=== PATIENT | male | born 1960 | race Caucasian/White ===

== ENCOUNTER 2016-11-13 09:45 | Emergency (ER) | payer MEDICARE, MEDICAID ==
[~2016-11-13] VITALS: Ht 185.4 cm; Wt 90.3 kg
[~2016-11-13 09:45] MED LIST: AMLO10TA2 PO; ASPI-999 PO; BUDE10.2 IH; ESCI20TA PO; FLUT16SP22 INH; FLUT1DIS27 IH; HYDR-3816 PO; LISI1TAB8 PO; MONT10TA24 PO
--- OUTSIDE RECORDS SUMMARY | 2016-11-13 09:49 | XMS REPORT | Continuity of Care Document ---
Author Author [facility] Organization [facility] Address Unknown Phone Unavailable Care Team Providers Care Warehousing Technician Name Role Phone [facility] PCP Insurance Providers Payer Name Policy Number Subscriber Name Relationship [employer] [id number] Elmer David 18 Self / Same As Patient [facility] [id number] Elmer David 18 Self / Same As Patient Advance Directives Directive Response Recorded Date/Time Advance Directives No 03/09/16 9:02am Health Care Power of Counter Manager No 03/09/16 9:02am Organ Donor No 03/09/16 9:02am Resuscitation Status Full Code 03/09/16 9:02am Problems Active Problems Medical Problem Onset Date Status Contusion of leg, left Unknown Acute Medications Current Home Medications Medication Dose Units Route Directions Days/Qty Instructions Start Date Amlodipine Besylate 10 Mg 10 Mg Oral Daily 07/28/15 Fluticasone Propionate 16 Gm 27.5 Mcg Inhalation Daily 07/28/15 Lisinopril/Hydrochlorothiazide 1 Each 1 Each Oral Daily 07/28/15 Montelukast Sodium 10 Mg 10 Mg Oral Bedtime 07/28/15 Fluticasone/Salmeterol 1 Each 1 Each Inhalation Twice A Day 02/19/16 Aspirin 81 Mg 81 Mg Oral Daily 02/19/16 Escitalopram Oxalate 20 Mg 20 Mg Oral Daily 03/09/16 Past Home Medications Medication Directions Ordered Status Budesonide/Formoterol Fumarate 10.2 Gm Hfa.aer.ad, 2 Puff Inhalation Twice A Day 10/20/15 Discontinued Social History Social History Problem Response Recorded Date/Time Alcohol Use Rarely Uses 03/09/2016 9:02am Recreational Drug Use No 03/09/2016 9:02am Recent Foreign Travel No 03/09/2016 9:02am Recent Infectious Disease Exposure No 03/09/2016 9:02am Hospitalization with Isolation Denies 03/09/2016 9:02am Smoking Status Former Smoker 03/09/2016 9:02am Do you dip or chew tobacco? No 02/19/2016 5:41pm Query Response Start Date Stop Date Smoking Status Former Smoker Hospital Discharge Instructions No hospital discharge instructions. Plan of Care Discharge Date 03/09/16 9:25am Prescriptions See Medication Section Functional Status No functional status results. Allergies, Adverse Reactions, Alerts Allergen Type Severity Reaction Status Last Updated Penicillins ([id number]) Allergy Unknown HIVES Active 03/09/16 Immunizations No immunization records. Vital Signs Acute Vital Signs Vital Response Date/Time Temperature (Fahrenheit) 98.8 degrees F (97.6 - 99.5) 02/19/2016 5:38pm Temperature (Calculated Celsius) 37.41438 degrees C (36.4 - 37.5) 02/19/2016 5:38pm Temperature Source Tympanic 02/19/2016 5:38pm Pulse Rate (adult) 77 bpm (60 - 90) 03/09/2016 9:02am Respiratory Rate 16 bpm (12 - 24) 02/19/2016 7:00pm O2 Sat by Pulse Oximetry 94 % (88 - 100) 03/09/2016 9:02am Blood Pressure 150/88 mm Hg 03/09/2016 9:02am Blood Pressure Mean 109 mm Hg 02/19/2016 5:38pm Pain Pain Intensity 7 02/19/2016 7:00pm Height (Feet) 6 feet 03/09/2016 9:02am Height (Inches) 1.00 inches 03/09/2016 9:02am Height (Calculated Centimeters) 185.317780 cm 03/09/2016 9:02am Weight (Pounds) 212 pounds 03/09/2016 9:02am Weight (Ounces) 7.0 oz 03/09/2016 9:02am Weight (Calculated Grams) 48487.030 gm 03/09/2016 9:02am Weight (Calculated Kilograms) 96.876925 kilograms 03/09/2016 9:02am Calculated BMI 24.50 03/09/2016 9:02am Results No known relevant diagnostic tests, laboratory data and/or discharge summary. Procedures Procedure Status Date Provider(s) Tracing only of electrocardiogram Active 03/09/16 AKOSUA CAMARILLO CRNA Encounters Encounter Location Arrival/Admit Date Discharge/Depart Date Attending Provider Departed Clinic [facility] 03/09/16 8:52am 03/09/16 9: 25am GRECIA CARREON MD Departed Emergency Room [facility] 02/19/16 4:50pm 02/18 6:59pm RADHA HER MD
[2016-11-13] MEDS ORDERED: LIDOCAINE 1% INJ 20 ML (XYLOCAINE) VIAL ONE (10:19)
[2016-11-13] MEDS ORDERED: LIDOCAINE 1% INJ 20 ML (XYLOCAINE) VIAL INJ ONE (10:30)
--- NOTE | 2016-11-13 10:53 | ED Integumentary General ---
General Chief Complaint: Skin/Wound Problems Stated Complaint: INSECT BITE ON ABD Nursing Triage Note: Pt reports possible spider bite to R abdomen. Pt denies fevers/chills. Source: patient Exam Limitations: no limitations History of Present Illness Time seen by provider: 10:47 Initial Comments 56-year-old white male presents with an abscess to the anterior right side of his abdominal wall that is been progressive for the last several days. The patient said similar lesions from MRSA. Past medical history includes hypertension and asthma. Allergies and Home Medications Allergies Coded Allergies: Penicillins (Verified Allergy, Unknown, HIVES, 03/09/16) Home Medications Amlodipine Besylate 10 Mg Tablet 10 MG PO DAILY (Reported) Aspirin 81 Mg Tab.chew 81 MG PO DAILY (Reported) Escitalopram Oxalate 20 Mg Tablet 20 MG PO DAILY (Reported) Fluticasone Propionate 16 Gm Whitmer.susp 27.5 MCG INH DAILY (Reported) Fluticasone/Salmeterol 1 Each Blst.w.dev 1 EACH IH BID (Reported) Hydrocodone/Acetaminophen 1 Each Tablet #40 1 EACH PO Q4H Prescribed by: RASHEEDA BLEDSOE on 03/16/16 1238 Lisinopril/Hydrochlorothiazide 1 Each Tablet 1 EACH PO DAILY (Reported) Montelukast Sodium 10 Mg Tablet 10 MG PO HS (Reported) Constitutional: No chills, No fever EENTM: No ear pain Respiratory: No cough Cardiovascular: No chest pain Gastrointestinal: No abdominal pain, No vomiting Genitourinary: no symptoms reported Musculoskeletal: No back pain Skin: other (abscess right abdominal wall) Psychiatric/Neurological: No Symptoms Reported Endocrine: No Symptoms Reported Past Yngnsyf-Yuhugg-Cncqis Hx Patient Social History Alcohol Use: Denies Use Recreational Drug Use: No Smoking Status: Former Smoker Type Used: Cigarettes Recent Foreign Travel: No Contact w/Someone Who Travel: No Recent Infectious Disease Expo: No Recent Hopitalizations: No Seasonal Allergies Seasonal Allergies: Yes Surgeries HX Surgeries: Yes (colonoscopy, bilat carpal tunnel, ulnar nerve, hernia) Surgeries: Orthopedic Respiratory Hx Respiratory Disorders: Yes Respiratory Disorders: Asthma Cardiovascular Hx Cardiac Disorders: Yes Cardiac Disorders: Hypertension Neurological Hx Neurological Disorders: No (seizures as a small child febrile?) Reproductive System Hx Reproductive Disorders: No Genitourinary Hx Genitourinary Disorders: No Gastrointestinal Hx Gastrointestinal Disorders: No Gastrointestinal Disorders: Abdominal Hernia Musculoskeletal Hx Musculoskeletal Disorders: No Endocrine Hx Endocrine Disorders: No HEENT HX ENT Disorders: No (dentures-upper) Cancer Hx Cancer: No Psychosocial Hx Psychiatric Problems: Yes Behavioral Health Disorders: Sleep Difficulties, Anxiety Integumentary HX Skin/Integumentary Disorder: No Blood Transfusions Hx Blood Disorders: No Reviewed Nursing Assessment Reviewed/Agree w Nursing PMH: Yes Family Medical History Significant Family History: No Pertinent Family Hx Physical Exam Vital Signs Vital Sign - Last 12Hours 11/13/16 10:02 Temp 97.9 Pulse 74 Resp 18 B/P 119/87 Pulse Ox 96 O2 Delivery Room Air Capillary Refill : Less Than 3 Seconds General Appearance: WD/WN no apparent distress HEENT: normal ENT inspection Neck: normal inspection Cardiovascular: regular rate, rhythm Respiratory: chest non-tender lungs clear Gastrointestinal: normal bowel sounds non tender soft Back: normal inspection Extremities: normal range of motion non-tender Neurologic/Psychiatric: no motor/sensory deficits alert Skin: other (abscess right lateral abdominal wall) Skin Problem Character: abscess Progress/Results/Core Measures Results/Orders My Orders Orders-RADHA HER MD Lidocaine 1% Injection (Xylocaine 1% Inj (11/13/16 10:19) Lidocaine 1% Injection (Xylocaine 1% Inj (11/13/16 10:30) Vital Signs/I&O Vital Sign - Last 12Hours 11/13/16 10:02 Temp 97.9 Pulse 74 Resp 18 B/P 119/87 Pulse Ox 96 O2 Delivery Room Air Blood Pressure Mean: 98 Progress Note : Time: 10:52 Progress Note Usual sterile conditions using 1 percent Xylocaine for local anesthesia the 3 cm in diameter abscess over the right lateral abdominal wall was incised with a number 15 blade. An infected sebaceous abscess was expressed. The remanence of the cyst were removed. Packing was placed. Dressing was applied. Departure Impression Impression: Primary Impression: Abscess Disposition: 01 HOME, SELF-CARE Condition: Improved Departure-Patient Inst. Referrals: [facility] (PCP/Family) Primary Care Physician Patient Instructions: Abscess Incision and Drainage (DC) Scripts Sulfamethoxazole/Trimethoprim (Bactrim Ds Tablet)1 Each Tablet1 Each PO BID #20 TAB Prov:RADHA HER MD 11/13/16 RADHA HER MD Nov 13, 2016 10:53
[2016-11-13] MEDS ORDERED: SULF1TAB35 PO (10:56)
[2016-11-13 11:02] VITALS: BP 119/87
== END 2016-11-13 11:02 | disposition home or self-care (01) ==
LOC: EDUNIT# 09:45 → ER 09:46
DX: L02.211 Cutaneous abscess of abdominal wall (principal); I10 Essential (primary) hypertension; Z79.82 Long term (current) use of aspirin; Z79.899 Other long term (current) drug therapy; Z87.891 Personal history of nicotine dependence
CPT/HCPCS: 10060

== ENCOUNTER 2019-01-30 18:09 | Emergency (ER) | payer MEDICARE, MEDICAID ==
[~2019-01-30] VITALS: Ht 185.4 cm; Wt 88.5 kg
[~2019-01-30 18:09] MED LIST changes: -AMLO10TA2 PO; +AMLO10TA7 PO; +HYDR-34 PO; -HYDR-3816 PO; +SULF1TAB35 PO
--- NOTE | 2019-01-30 19:12 | Diagnostic Imaging Report ---
EXAMINATION: Three views of left foot. INDICATION: Dropped heavy object on foot. FINDINGS: There is dorsal foot soft tissue swelling but there are no findings of an acute foot fracture. There is no joint dislocation. There are arthritic changes present within the great toe. The joint spaces otherwise appear unremarkable. There is a well-corticated ossific density adjacent to the medial malleolus, compatible with a remote avulsion. IMPRESSION: 1. Dorsal soft tissue swelling overlying the left foot without acute foot fracture. 2. osteoarthritic changes within the great toe. 3. Remote medial malleolus avulsion. Dictated by: Dictated on workstation # [id number]
--- NOTE | 2019-01-30 19:13 | Diagnostic Imaging Report ---
EXAMINATION: Three views of the left foot. INDICATION: Dropped object on foot. Foot and ankle swelling. FINDINGS: There is diffuse soft tissue swelling demonstrated about the ankle, greater laterally. There is no distal fibular fracture evident. There is remote avulsion off the medial malleolus. There is no widening of the ankle mortise. The talar dome is normal in morphology. The visualized portion of the hindfoot demonstrates no fracture. IMPRESSION: Ankle soft tissue swelling greatest along the lateral aspect of the ankle and foot. There is no acute fracture evident. There is a remote avulsion off of the medial malleolus. Alignment appears normal. Dictated by: Dictated on workstation # [id number]
[2019-01-30] MEDS ORDERED: HYDR-4226 PO (19:24)
--- NOTE | 2019-01-30 19:24 | ED Lower Extremity ---
General Chief Complaint: Lower Extremity Stated Complaint: L FOOT PAIN Nursing Triage Note: PT AMB TO TRIAGE WITH COMPLAINT OF LEFT FT INJURY. PT DROPPED FLOOR HELEN ON FOOT LAST NIGHT. Nursing Sepsis Screen: No Definite Risk Source: patient Exam Limitations: no limitations History of Present Illness Date Seen by Provider: Jan 30, 2019 Time Seen by Provider: 19:21 Initial Comments To ER with reports of left foot pain. He dropped a helen on this last night. He' s been able to put some weight on it but it is painful. Onset: just prior to arrival Severity: moderate Pain/Injury Location: left foot, left ankle Method of Injury: direct blow Modifying Factors: Worse With Movement Allergies and Home Medications Allergies Coded Allergies: Penicillins (Verified Allergy, Unknown, HIVES, 03/09/16) Home Medications Amlodipine Besylate 10 Mg Tablet, 10 MG PO DAILY, (Reported) Aspirin 81 Mg Tab.chew, 81 MG PO DAILY, (Reported) Escitalopram Oxalate 20 Mg Tablet, 20 MG PO DAILY, (Reported) Fluticasone Propionate 16 Gm Essie.susp, 27.5 MCG INH DAILY, (Reported) Fluticasone/Salmeterol 1 Each Blst.w.dev, 1 EACH IH BID, (Reported) Hydrocodone Bit/Acetaminophen 1 Each Tablet, 1 EACH PO Q4H Prescribed by: RASHEEDA BLEDSOE on 03/16/16 1238 Hydrocodone/Acetaminophen 1 Each Tablet, 1 EACH PO Q6H PRN for PAIN-MODERATE Prescribed by: DOUGLAS JOHNSON on 01/30/19 1924 Lisinopril/Hydrochlorothiazide 1 Each Tablet, 1 EACH PO DAILY, (Reported) Montelukast Sodium 10 Mg Tablet, 10 MG PO HS, (Reported) Sulfamethoxazole/Trimethoprim 1 Each Tablet, 1 EACH PO BID Prescribed by: RADHA HER MD on 11/13/16 1056 Patient Home Medication List Home Medication List Reviewed: Yes Review of Systems Constitutional: see HPI EENTM: see HPI Respiratory: no symptoms reported Cardiovascular: no symptoms reported Genitourinary: no symptoms reported Musculoskeletal: see HPI Skin: see HPI Past Knskeym-Zwadfh-Owtikd Hx Patient Social History Alcohol Use: Denies Use Recreational Drug Use: No Smoking Status: Former Smoker Type Used: Cigarettes Former Smoker, Quit: Mar 09, 2009 Recent Foreign Travel: No Contact w/Someone Who Travel: No Recent Infectious Disease Expo: No Recent Hopitalizations: No Immunizations Up To Date Tetanus Booster (TDap): More than 5yrs Seasonal Allergies Seasonal Allergies: Yes Past Medical History Surgeries: Yes (colonoscopy, bilat carpal tunnel, ulnar nerve, hernia) Orthopedic Respiratory: Yes Asthma Cardiac: Yes Hypertension Neurological: No (seizures as a small child febrile?) Reproductive Disorders: No Gastrointestinal: No Abdominal Hernia Musculoskeletal: No Endocrine: No Cancer: No Psychosocial: Yes Sleep Difficulties, Anxiety Integumentary: No Blood Disorders: No Family Medical History No Pertinent Family Hx Physical Exam Vital Signs Vital Signs - First Documented 01/30/19 18:13 Pulse 79 Resp 20 B/P (MAP) 147/90 (109) Pulse Ox 94 O2 Delivery Room Air Capillary Refill : Less Than 3 Seconds Height, Weight, BMI Height: 6'1.00" Weight: 195lbs. 7.0oz. 88.379861jp; 28.0 BMI Method:Stated General Appearance: WD/WN, no apparent distress HEENT: PERRL/EOMI, normal ENT inspection Respiratory: no respiratory distress, no accessory muscle use Hips: bilateral hip non-tender, bilateral hip normal inspection, bilateral hip normal range of motion Legs: bilateral leg non-tender, bilateral leg normal inspection, bilateral leg normal range of motion Knees: bilateral knee non-tender, bilateral knee normal inspection, bilateral knee normal range of motion Ankles: left ankle pain, left ankle soft tissue tenderness, left ankle swelling Feet: left foot pain, left foot soft tissue tenderness, left foot swelling, left foot other (there is also an abrasion to the dorsal aspect of the midfoot on the left. No sialitis.) Neurologic/Psychiatric: alert, normal mood/affect, oriented x 3 Skin: normal color, warm/dry Progress/Results/Core Measures Results/Orders My Orders Orders - DOUGLAS JOHNSON APRN Dipht,Pertuss(Acell),Tet Adult (Boostrix (01/30/19 19:30) Cephalexin Capsule (Keflex Capsule) (01/30/19 19:30) Hydrocodone/Apap 5/325 Tablet (Lortab 5 (01/30/19 19:30) Vital Signs/I&O 01/30/19 18:13 Pulse 79 Resp 20 B/P (MAP) 147/90 (109) Pulse Ox 94 O2 Delivery Room Air Blood Pressure Mean: 109 Departure Impression Primary Impression: Contusion of foot Qualified Codes: S90.32XA - Contusion of left foot, initial encounter Disposition: 01 HOME, SELF-CARE Condition: Stable Departure-Patient Inst. Decision time for Depature: 19:22 Referrals: [facility] (PCP) Primary Care Physician JOSE WILKINSON (Family) Primary Care Physician Patient Instructions: Contusion (DC) Add. Discharge Instructions: 1. Elevate the foot as much as possible for the next 2-3 days. Wear the Naveen wrap on the foot for the next 2-3 days. Use the crutches as needed when walking for the next few days until it does not hurt any longer to put weight on the foot. All discharge instructions reviewed with patient and/or family. Voiced understanding. Scripts Cephalexin (Keflex) 500 Mg Capsule 500 MG PO TID, #15 CAP Prov: DOUGLAS JOHNSON APRN 01/30/19 Hydrocodone/Acetaminophen ([place] 5-325 Tablet) 1 Each Tablet 1 EACH PO Q6H PRN for PAIN-MODERATE MDD 10, #14 TAB Prov: DOUGLAS JOHNSON APRN 01/30/19 DOUGLAS JOHNSON APRN Jan 30, 2019 19:24
[2019-01-30] MEDS ORDERED: CEPH-507 PO (19:28)
[2019-01-30] MEDS ORDERED: TETANUS,DIPTH,PERTUSS P/F (BOOSTRIX) 0.5 ML VIAL IM ONE (19:30)
[2019-01-30] MEDS ORDERED: HYDROcodone/APAP 5 MG/325 MG (LORTAB) TAB PO ONE (19:30)
[2019-01-30] MEDS ORDERED: CEPHALEXIN 250 MG (KEFLEX) CAP PO ONE (19:30)
[2019-01-30 19:40] VITALS: BP 147/90
== END 2019-01-30 19:40 | disposition home or self-care (01) ==
LOC: EDUNIT# 18:09 → ER 18:10
DX: S90.32XA Contusion of left foot, initial encounter (principal); J45.909 Unspecified asthma, uncomplicated; I10 Essential (primary) hypertension; F41.9 Anxiety disorder, unspecified; Z88.0 Allergy status to penicillin; Z79.82 Long term (current) use of aspirin; Z23 Encounter for immunization; Z79.51 Long term (current) use of inhaled steroids; Z87.891 Personal history of nicotine dependence; W20.0XXA Struck by falling object in cave-in, initial encounter
CPT/HCPCS: 73610; 73630; 90715

== ENCOUNTER → 2021-03-02 | Outpatient (CLI) | payer MEDICARE, MEDICAID ==
[~2021-03-02] MED LIST changes: +AMLO-251 PO; -AMLO10TA7 PO; +CEPH-507 PO; +HYDR-4226 PO; +LISI1TAB46 PO; -LISI1TAB8 PO; -MONT10TA24 PO; +MONT10TA32 PO
== END ==
LOC: CARD 08:48
PROVIDERS: ATTEND Internal Medicine Cardiovascular Disease
DX: I25.10 Atherosclerotic heart disease of native coronary artery without angina pectoris (principal); I11.9 Hypertensive heart disease without heart failure; I34.0 Nonrheumatic mitral (valve) insufficiency
CPT/HCPCS: 93306